=== PATIENT | male | born 2000 | race Caucasian/White ===

== ENCOUNTER → 2023-04-03 14:19 | Outpatient (CLI) | payer BC, SELFPAY ==
[2023-04-03 15:31] LABS: Influenza A - CEPHEID Flu A NEGATIVE (NEGATIVE); Influenza B - CEPHEID Flu B NEGATIVE (NEGATIVE); Respiratory Syncytial Virus Negative (Negative)
[2023-04-03 15:36] LABS: COVID-19 CEPHEID 4-PLEX PCR Negative (Negative)
== END ==
PROVIDERS: Family Provider Pediatrics; Visit Provider Physician Assistant
DX: R05.1 Acute cough (principal)
CPT/HCPCS: 0241U

== ENCOUNTER 2023-05-27 01:57 | Emergency (ER) | payer BC, SELFPAY ==
--- NOTE | 2023-05-27 02:08 | DI.RAD.S_ITS ---
PROCEDURE: XR CHEST 1V INDICATIONS: LEFT CHEST PAIN TECHNIQUE: One view of the chest was acquired. COMPARISON: None. FINDINGS: Suboptimal due to arm positioning. Surgical changes and devices: None. Lungs and pleura: Lungs are clear. No pleural effusions or pneumothorax. Mediastinum: Mediastinal contours appear normal. Heart size is normal. Bones and chest wall: No suspicious bony lesions. Overlying soft tissues appear unremarkable. IMPRESSION: No acute cardiopulmonary abnormality is seen. Dictated by: Wyatt Rivero M.D. on 05/27/2023 at 7:41 Approved by: Wyatt Rivero M.D. on 05/27/2023 at 7:41
--- NOTE | 2023-05-27 02:08 | ED.CHESTPAIN ---
HPI - Chest Pain General Chief Complaint: Chest Pain Stated Complaint: heart racing passed out Time Seen by Provider: 05/27/23 02:03 History of Present Illness HPI narrative: 23-year-old male with history of marijuana use presents for left-sided chest pain. Patient states that he was smoking weed when all of a sudden he felt a ?over powering? pain in the left side of his chest with some shortness of breath. He states that he then developed nausea and chills and thinks he may have passed out. He states that he thinks something may have been laced in the joint he was smoking. He states he currently feels much better with only minimal left-sided pain. Related Data Home Medications Medication Instructions Recorded Confirmed No Known Home Medications 04/25/18 04/03/23 Allergies Allergy/AdvReac Type Severity Reaction Status Date / Time No Known Allergies Allergy Uncoded 04/03/23 13:32 Review of Systems Review of Systems Narrative: Negative except as noted above Patient History Social History Smoking Status: Never smoker alcohol intake: never substance use type: does not use Smoking Status: Never smoker alcohol intake frequency: 0-2 drinks per day (2 per day) Substance Use Type: marijuana Exam Initial Vital Signs Initial Vital Signs: Vital Signs Temperature 97.8 F 05/27/23 02:11 Pulse Rate 100 H 05/27/23 02:11 Respiratory Rate 16 05/27/23 02:11 Blood Pressure 158/88 H 05/27/23 02:11 Pulse Oximetry 97 05/27/23 02:11 Oxygen Delivery Method Room Air 05/27/23 02:11 Const: Awake, alert, no acute distress, nontoxic appearing Cardiac: regular rate, regular rhythm RESP: unlabored, clear bilaterally, no wheezing Skin: Warm, Dry, intact, no rashes Neuro: AO x3, CN II-XII grossly intact, moves all extremities Course Orders Ordered: ED Orders 05/27/23 02:03 EKG-12 Lead Stat 05/27/23 02:08 Chest [XR chest 1V] Stat 05/27/23 03:30 Urine Drug Screen, Rapid Stat Vital Signs Vital signs: Vital Signs - 8 hr 05/27/23 02:11 05/27/23 03:00 Temperature 97.8 F Pulse Rate 100 H 92 H Respiratory Rate 16 14 Blood Pressure 158/88 H 152/85 H Pulse Oximetry 97 97 Oxygen Delivery Method Room Air Room Air MDM - Chest Pain Differential Diagnosis Differential diagnosis: Likely fracture of rib, pneumothorax and stable angina Lab Data Labs: Lab Results 05/27/23 Range/Units 03:30 U Opiates 300ng/mL cut Negative (Negative) Ur Oxycodone Screen Negative (Negative) Urine Methadone Screen Negative (Negative) Ur Barbiturates Screen Negative (Negative) U Tricyclic Antidepress Negative (Negative) Ur Phencyclidine Scrn Negative (Negative) Ur Amphetamines Screen Negative (Negative) U Methamphetamines Scrn Negative (Negative) Ur MDMA Scrn (Ecstasy) Negative (Negative) U Benzodiazepines Scrn Negative (Negative) Urine Cocaine Screen Negative (Negative) U Marijuana (THC) Screen Positive H (Negative) Urine pH TNP Urine Specific [place] TNP Ur Creatinine TNP ECG Data Interpretation: Sinus tachycardia at 105 beats per minute, normal ID, normal axis, no ST T wave changes MDM Narrative Medical decision making narrative: Well-appearing patient with chest pain after smoking a joint. Currently minimally symptomatic and already feeling much better. Patient thinks he may have smoked a bed joint. Suspect a drug side effect as cause for patient's symptoms. Heart score is 0, I have extremely low suspicion for ACS at this time. EKG nonischemic, chest x-ray negative for acute findings. Urine drug screen positive only for marijuana. Patient was remained asymptomatic in the exam room and in no acute distress. Informed of all lab and imaging findings, attention brought to elevated blood pressure reading while in the ER and recommended close PCP follow up. Discharge Plan Departure Patient Disposition: Home Clinical Impression: Chest pain Instructions: DI for Chest Pain Activity Restrictions/Additional Instructions: Follow up with your primary care physician. Avoid smoking if this seems to start causing your chest pains. You had a mildly elevated blood pressure today, this can be managed by primary care physician. Prescriptions: No Action No Known Home Medications Referrals: Maday,MD Jf [Primary Care Provider] - Stand Alone Forms: Patient Portal/API
[2023-05-27 02:11] VITALS: BP 158/88; PULSE 100; RESP 16; TEMP 36.6; O2SAT 97; BMI 20.1
--- NOTE | 2023-05-27 02:39 | PC.NURSE ---
Pt states he is unable to give urine sample at this time.
[2023-05-27 03:00] VITALS: BP 152/85; PULSE 92; RESP 14; O2SAT 97
[2023-05-27 03:47] LABS: UR Morphine/Opiate cutoff 300 Negative (Negative); Urine Amphetamines Negative (Negative); Urine Barbiturates Negative (Negative); Urine Benzodiazepines Negative (Negative); Urine Cocaine Negative (Negative); Urine MDMA Negative (Negative); Urine Methadone Negative (Negative); Urine Methamphetamines Negative (Negative); Urine Oxycodone Negative (Negative); Urine Phencyclidine Negative (Negative); Urine Tetrahydrocannabinol Positive (Negative); Urine Tricyclic Antidepressant Negative (Negative)
== END 2023-05-27 04:00 | disposition home or self-care (01) ==
PROVIDERS: Emergency Provider Emergency Medicine; Family Provider Pediatrics
DX: R07.9 Chest pain, unspecified (principal)
CPT/HCPCS: 71045; 80305; 93005; 99282; 99284

== ENCOUNTER 2023-11-07 12:29 | Emergency (ER) | payer BC, SELFPAY ==
[2023-11-07 12:31] VITALS: BP 141/77; PULSE 64; RESP 16; TEMP 36.6; O2SAT 99; BMI 23.0
--- NOTE | 2023-11-07 13:30 | ED.HEATRA ---
HPI - Head Injury General Chief complaint: Head Injury Stated complaint: hit head on metal door Time Seen by Provider: 11/07/23 13:30 Source: patient Mode of arrival: Ambulatory Limitations: no limitations History of Present Illness HPI Narrative: 23-year-old chronic tobacco use who presents with complaint of head injury 2 days ago. Patient was going [place] a boat door way hit his head on the top of the door that is slides. Patient states he was knocked out for a couple seconds according to the friend who caught him. Has not had any other episodes of loss of consciousness has had a little bit of headache, had lead mason tender, he has had a little bit of nausea and dizziness. Denies any vomiting. No chest pain or pressure, no loss of bowel or bladder control no numbness tingling or weakness. Patient was able to walk about 2 miles here states it made that is knees feel achy but tolerated otherwise. States he did not appreciate any bleeding or injury otherwise. Patient states no daily medications, has had prior tonsillectomy. No known drug allergies reported. Uses tobacco, vapes. Denies regular alcohol states occasionally usage. Uses marijuana regularly. Patient asked to meet with [facility] he states he is currently homeless has been living out of his car for the past 3 weeks and now it has not working properly. Patient states he has a part-time job as an [employer] but does not have insurance or benefits with this. States he was living with his parents until 3 weeks ago when they asked him to leave. Related Data Home Medications Medication Instructions Recorded Confirmed No Known Home Medications 04/25/18 04/03/23 Allergies Allergy/AdvReac Type Severity Reaction Status Date / Time No Known Allergies Allergy Uncoded 04/03/23 13:32 Review of Systems Review of Systems ROS Unobtainable: All systems reviewed & are unremarkable except as noted in HPI and below Patient History Social History Smoking Status: Current every day smoker alcohol intake: never substance use type: does not use Smoking Status: Current every day smoker tobacco type: vaping alcohol intake frequency: 0-2 drinks per day Substance Use Type: marijuana Exam Narrative Exam Narrative: GEN: Patient appears in mild distress. HEAD: No evidence of trauma, no raccoon/Yan sign. NECK: Nontender, painless range of motion, trachea midline Negative Nexus criteria, there is no midline line tenderness, distracting injury, altered mental status, neuro deficit, recent EtOH. EYES: PERRLA, EOMI ENT: External inspection normal, trachea is midline, TM's are normal no hemotypanum, Nares are clear, no septal hematoma, no dental or oral injury, airway is normal and with normal occlusion, No bony tenderness RESP: Chest is nontender and has symmetric movement, no ecchymosis, breath sounds are normal no crackles, wheezes or rales CVS: Heart sounds are normal, no murmur noted, No JVD. ABG/GI: Nontender, soft, normal bowel sounds, no distention, no organomegaly. NEURO: Oriented AOx3, neuro is grossly intact, sensation and motor is normal all 4 extremities moving, cranial nerves II through XII are intact, GCS is 15 PSYCH: Normal mood and affect SKIN: Intact, warm and dry, no crepitus and without decubitus BACK: No CVA tenderness, no vertebral tenderness, no step-off's, no crepitus EXT: Atraumatic, normal range of motion. Normal gait. Initial Vital Signs Initial Vital Signs: Vital Signs Temperature 98 F 11/07/23 12:31 Pulse Rate 64 11/07/23 12:31 Respiratory Rate 16 11/07/23 12:31 Blood Pressure 141/77 H 11/07/23 12:31 Pulse Oximetry 99 11/07/23 12:31 Oxygen Delivery Method Room Air 11/07/23 12:[address] [place] [address] Head Rule Age <16 years old: No Patient on blood thinners: No Seizure after injury: No Exclusion: Patient NOT Excluded, Proceed to next steps GCS < 15 at 2 hr post trauma: No Suspected open or depressed skull fracture: No Any sign of basilar skull fracture (hemotympanum, raccoon eyes, Yan's sign, CSF aline-/rhinorrhea): No Two or more episodes of vomiting: No Age greater or equal to 65 years: No Retrograde amnesia to the event greater or equal to 30 min: No Dangerous Mechanism (pedestrian vs. mv, occupant ejected from mv, fall from >3 ft or > 5 stairs): No Recommendation: CT unnecessary GCS Xin coma scale eye opening: Spontaneous Howes coma scale verbal response: Orientated Howes coma scale motor response: Obey commands Howes coma scale total score: 15 Nexus Score for C-Spine Focal Neurologic deficit present: No Midline spinal tenderness present: No Altered level of conciousness present: No Intoxication present: No Course Orders Ordered: ED Orders 11/07/23 12:36 Consult to [facility] - Triage Register Nurse Stat Vital Signs Vital signs: Vital Signs - 8 hr 11/07/23 12:31 Temperature 98 F Pulse Rate 64 Respiratory Rate 16 Blood Pressure 141/77 H Pulse Oximetry 99 Oxygen Delivery Method Room Air MDM - Head Injury MDM Narrative Medical decision making narrative: 23-year-old male presents with complaint of head injury 2 days prior, states he was knocked out for about 3 seconds his friend caught him. Since then he has had a little bit of headache dizziness and some nausea. He has been able to do all his normal activities. He walked about 2 miles to get here to be seen. Suspect patient has a little bit of a concussion based on his description no abrasion or scalp hematomas appreciated. GCS is 15. Patient does not have any red flag changes necessitating head CT or cervical imaging at this point. Patient did ask to meet with [facility], is currently homeless med seeking assistance with resources. Met with Paz rodriguez [facility]. Resources given. Discharge Plan Departure Patient Disposition: Home Clinical Impression: Concussion Instructions: Concussion Activity Restrictions/Additional Instructions: Follow up as needed. You can take Tylenol and/or ibuprofen for any headaches as needed. Please return for rapidly worsening symptoms sudden vision changes, persistent vomiting new numbness tingling or weakness, loss of bowel or bladder control, passing out or other new or concerning changes. Prescriptions: No Action No Known Home Medications Referrals: Miscellaneous,DoctorMD [Primary Care Provider] - Stand Alone Forms: Patient Portal/API
--- NOTE | 2023-11-07 14:44 | CM.SWNOTE ---
ED PARTS COORDINATOR Note PARTS COORDINATOR receives consult due to patient's concern for housing and basic need insecurity. Patient is 23 y/o male who presents to the ED due to concern for head injury two days ago. Patient states he is residing in his car, has a sleeping bag, and applied for food stamps. Patient endorses his parents kicked him out and he has some friends in [place] that he was trying to get to but he did not have a ride. PARTS COORDINATOR provides patient with residential and housing resources as well as food and basic needs resources. PARTS COORDINATOR offers bus passes and patient agrees, PARTS COORDINATOR provides patient with 5 [place] day bus passes. Plan: patient to d/c to community upon medical clearance. GUI [email or web address]
== END 2023-11-07 14:00 | disposition home or self-care (01) ==
PROVIDERS: Emergency Provider Emergency Medicine; Family Provider Pediatrics
DX: S06.0X0A Concussion without loss of consciousness, initial encounter (principal); R42 Dizziness and giddiness; R40.2410 Glasgow coma scale score 13-15, unspecified time; W22.8XXA Striking against or struck by other objects, initial encounter
CPT/HCPCS: 99281